=== PATIENT | female | born 1970 | race Caucasian/White ===

== ENCOUNTER 2020-01-21 12:32 | Emergency (ER) | payer OTHER, SELFPAY ==
--- NOTE | ~2020-01-21 | XR_ITS ---
XR ankle RT min 3V DATE: 01/21/2020 13:03 INDICATION: Right lateral ankle pain. No injury. TECHNIQUE: 4 views COMPARISON: None FINDINGS: There is moderate lateral soft tissue swelling. No fracture or dislocation of the ankle or disruption of the ankle mortise. Prominent plantar calcaneal enthesopathy. IMPRESSION: Plantar calcaneal enthesopathy Moderate lateral soft tissue swelling Reviewed, dictated and finalized at location A.
[2020-01-21 12:41] VITALS: BP 100/83; PULSE 94; RESP 16; TEMP 37.2; O2SAT 100
--- NOTE | 2020-01-21 12:49 | ED.LOWEXIN ---
HPI - Extremity Injury (Lower) General Chief Complaint: Extremity Injury, Lower Stated Complaint: extremity injury, lower Time Seen by Provider: 01/21/20 12:50 Source: patient Mode of arrival: ambulatory Limitations: no limitations History of Present Illness HPI Narrative: Julia Zavaleta is a 49 yo female with a PMH of anxiety, ADD, hypothyroid, migraine, who comes to express care with c/o swelling and mild swelling og lateral lower ; does not recall any trauma; does have difficulty turning to right without pain; walking on side of foot Related Data Home Medications Medication Instructions Recorded Confirmed omeprazole 20 mg capsule,delayed 20 mg PO DAILY PRN 07/27/19 01/21/20 release sumatriptan succinate 100 mg tablet 100 mg PO ONCE 07/27/19 01/21/20 Allergies Allergy/AdvReac Type Severity Reaction Status Date / Time egg Allergy Unknown Unknown Verified 12/03/19 12:59 iodine Allergy Unknown Unknown Verified 12/03/19 12:59 shellfish derived Allergy Unknown Unknown Verified 12/03/19 12:59 Oat Allergy Unknown Unknown Uncoded 12/03/19 12:59 shellfish, citrus, oats Allergy Unknown Unknown Uncoded 12/03/19 12:59 Shrimp Allergy Unknown Unknown Uncoded 12/03/19 12:59 Review of Systems Review of Systems: Narrative: CONSTITUTIONAL: Denies fever, chills, sweats. EYES: Denies visual changes, redness, discharge. ENT: Denies rhinorrhea, congestion, sore throat, otalgia. CARDIOVASCULAR: Denies chest pain, palpitations, edema. RESPIRATORY: Denies dyspnea, wheezing, cough GASTROINTESTINAL: Denies abdominal pain, nausea, vomiting, diarrhea. GENITOURINARY: Denies dysuria, hematuria, abnormal discharge SKIN: Denies rash or itching. NEUROLOGIC: Denies numbness, or focal weakness. PSYCHIATRIC: Denies anxiety or depression. Right lower leg swelling on lateral side with pain PMFSH Past Medical History Medical History ADHD Asthma Headache Hyperglycemia Obesity Thyroid disease Family History Family History Mother Hypertension Family history of thyroid disease Family history of Alzheimer's disease Grandparent Family history of malignant neoplasm of breast Family history of arthritis Family history of Alzheimer's disease Family history of malignant neoplasm of male breast Sibling Family history of obesity Family history of migraine headaches Family history of attention deficit hyperactivity disorder (ADHD) Social History Social History Smoking status: Never smoker Alcohol intake: current Gender identity (if verbalized by the patient): Female Comments At time of signature, I agree with nursing past medical, surgical, social and family history. There is no relevant family history pertinent to the presenting complaint. Exam Narrative: Exam Narrative: GENERAL: This is a well-nourished, well-developed patient, in mild distress. HEAD: normocephalic, atraumatic. EYES:Sclera clear/white. Vision is grossly intact. EARS: External ears normal, . Hearing grossly intact. NOSE: External nose normal without nasal discharge, no rhinorrhea. THROAT: Mucous membranes moist, NECK: Neck supple, CARDIOVASCULAR: Regular rate and rhythm without murmurs, gallops, or rubs. RESPIRATORY: Clear to auscultation. Breath sounds equal bilaterally. No wheezes, rales, or rhonchi. GASTROINTESTINAL: Abdomen soft, SKIN: warm, intact with no suspicious lesions or rash, good texture and turgor. NEURO: awake, alert, and oriented to person, place and time. There were no obvious focal neurologic abnormalities. Steady gait EXTREMITIES: Normal range of motion. Right lower extremity tenderness on the lateral side is able to point and flex foot with minimal discomfort but when tries to rotate ankle externally there is pain at the base of the malleolus and across the Achilles tendon, 2+
== END 2020-01-21 13:33 | disposition home or self-care (01) ==
PROVIDERS: Emergency Provider Nurse Practitioner; PCP Family Medicine
DX: S93.401A Sprain of unspecified ligament of right ankle, initial encounter (principal); S96.911A Strain of unspecified muscle and tendon at ankle and foot level, right foot, initial encounter; X58.XXXA Exposure to other specified factors, initial encounter; F90.9 Attention-deficit hyperactivity disorder, unspecified type; J45.909 Unspecified asthma, uncomplicated; E66.9 Obesity, unspecified; Z68.36 Body mass index [BMI] 36.0-36.9, adult; E03.9 Hypothyroidism, unspecified; F41.9 Anxiety disorder, unspecified
CPT/HCPCS: 73610; 99213; G0463

== ENCOUNTER 2020-01-24 10:23 | Outpatient (CLI) | payer OTHER, SELFPAY ==
--- NOTE | ~2020-01-24 | US_ITS ---
EXAMINATION: US venous doppler [facility] DATE: 01/24/2020 12:07 INDICATION: Right lower limb swelling TECHNIQUE: Grayscale ultrasound images without and with compression and Doppler ultrasound images of the bilateral lower extremity veins were obtained. COMPARISON: None. FINDINGS: The visualized portions of right common femoral vein, profunda (deep) femoral vein, femoral vein, pop liteal vein, posterior tibial veins, peroneal veins, gastrocnemius vein and greater saphenous vein ou tflow are patent. The visualized portions of left common femoral vein, profunda femoral vein, femoral vein, popliteal v ein, posterior tibial veins, peroneal veins, gastrocnemius vein and greater saphenous vein outflow ar e patent. IMPRESSION: 1. No deep venous thrombosis in either lower limb. Reviewed, dictated and finalized at location A.
== END 2020-01-24 10:24 | disposition home or self-care (01) ==
PROVIDERS: PCP Family Medicine; Visit Provider Nurse Practitioner Family
DX: M79.604 Pain in right leg (principal)
CPT/HCPCS: 93970

== ENCOUNTER 2020-02-11 07:31 | Outpatient (CLI) | payer OTHER, SELFPAY ==
--- NOTE | ~2020-02-11 | MR_ITS ---
EXAMINATION: MR ankle RT wo con DATE: 02/11/2020 09:20 INDICATION: Right ankle pain TECHNIQUE: Magnetic resonance imaging (MRI) of the right ankle was performed without intravenous cont rast. Sequences included sagittal, coronal, and axial proton-density weighted fast spin echo without and with fat saturation. COMPARISON: None. FINDINGS: Medial ankle ligaments: Deep and superficial deltoid ligaments as well as the spring ligament are normal. Lateral ankle ligaments: The anterior and posterior inferior tibiofibular ligaments are normal. Complete tear of the anterior talofibular ligament which is of indeterminate chronicity. The calcaneofibular and posterior talofibu lar ligaments are normal. Tendons: Achilles tendon is normal. The peroneus longus and brevis tendons are normal. The tibialis anterior a nd extensor hallucis longus and extensor digitorum longus tendons are normal. The tibialis posterior, flexor digitorum longus and flexor hallucis longus tendons are normal. Plantar fascia: Moderate-sized plantar calcaneal spur at the calcaneal origin of the otherwise normal plantar aponeur osis. Bones/other: There is periosteal reaction at the distal metadiaphyseal region of the left fibula with surrounding soft tissue edema as well as marrow edema. There is a subtle low signal intensity fracture line exten ding across the medullary space. Otherwise normal marrow signal. No pathologic marrow replacing proce ss. Joint spaces are relatively preserved. Fluid: No joint effusions or tenosynovitis. Likely reactive soft tissue edema surrounding the fibular fractu re. IMPRESSION: 1. Subacute nondisplaced transverse stress fracture of the distal metadiaphyseal region of the left f ibula 2. Age indeterminate complete tear of the anterior talofibular ligament. Reviewed, dictated and finalized at location A. IMPRESSION: 1. Subacute nondisplaced transverse stress fracture of the distal metadiaphysea l region of the left fibula 2. Age indeterminate complete tear of the anterior talofibular ligament.
== END 2020-02-11 07:32 | disposition home or self-care (01) ==
PROVIDERS: PCP Family Medicine; Visit Provider Physician Assistant Medical
DX: G89.29 Other chronic pain (principal); M25.571 Pain in right ankle and joints of right foot; S82.424A Nondisplaced transverse fracture of shaft of right fibula, initial encounter for closed fracture; X58.XXXA Exposure to other specified factors, initial encounter
CPT/HCPCS: 73721

== ENCOUNTER → 2020-05-16 13:42 | Outpatient (CLI) | payer OTHER, SELFPAY ==
--- NOTE | ~2020-05-16 | MM_ITS ---
EXAMINATION: MM screening debbie BI w shanell HISTORY: Screening mammogram TECHNIQUE: Craniocaudal and mediolateral oblique 3-D tomosynthesis images were obtained and synthetic 2-D images were generated. CAD analysis was submitted and interpreted. COMPARISON: 09/04/2018, 08/28/2017, 07/28/2016 bilateral digital screening mammogram examinations BREAST PARENCHYMAL COMPOSITION: There are scattered areas of fibroglandular density. FINDINGS: There is no evidence of suspicious mass, calcification, or architectural distortion to sugg est malignancy in either breast. There has been no suspicious interval change. IMPRESSION: 1. No mammographic evidence of malignancy. 2. Recommend routine screening mammography in one year. BI-RADS Category 1: Negative Reviewed, dictated and finalized at location B. ME PLATER
== END ==
PROVIDERS: Visit Provider Nurse Practitioner
DX: Z12.31 Encounter for screening mammogram for malignant neoplasm of breast (principal); R92.8 Other abnormal and inconclusive findings on diagnostic imaging of breast
CPT/HCPCS: 77063; 77067

== ENCOUNTER → 2020-06-07 08:41 | Outpatient (CLI) | payer OTHER, SELFPAY ==
--- NOTE | ~2020-06-07 | MMUS_ITS ---
EXAMINATION: MM diagnostic mammo unilat RT, US breast RT limited HISTORY: Right breast mass TECHNIQUE: Additional 3-D tomosynthesis images of the right breast were performed and synthetic 2-D i mages were generated. CAD analysis was submitted and interpreted. High resolution Limited right breas t ultrasound was performed. COMPARISON: 05/16/2020 BREAST PARENCHYMAL COMPOSITION: Breast composed of scattered areas of fibroglandular density. FINDINGS: MAMMOGRAPHIC FINDINGS: Overlying the pectoralis muscle there are 2 small circumscribed masses with central lucency measuring 6 mm or less, consistent with lymph nodes. No suspicious masses, calcifications or architectural dis tortion to suggest malignancy. ULTRASOUND: In the left axilla there are 2 lymph nodes, largest measuring 2 cm maximum dimension with normal fatt y hilum. In the axillary tail there is an oval hypoechoic mass measuring 6 mm with circumscribed shira ins, parallel orientation, no significant posterior features. IMPRESSION: 1. Probable benign 6 mm mass of the left axillary tail. 2. Recommend 6 month follow-up targeted left breast ultrasound and diagnostic mammogram BI-RADS category 3, probably benign findings. Reviewed, dictated and finalized at location A. 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 Probable benign 6 mm mass of the left axillary tail. 2. Recommend 6 month follow-up targeted left breast ultrasound and diagnostic m ammogram BI-RADS category 3, probably benign findings.
== END ==
PROVIDERS: Visit Provider Obstetrics & Gynecology Gynecology
DX: N63.32 Unspecified lump in axillary tail of the left breast (principal)
CPT/HCPCS: 76642; 77065

== ENCOUNTER → 2020-12-05 10:02 | Outpatient (CLI) | payer OTHER, SELFPAY ==
--- NOTE | ~2020-12-05 | MMUS_ITS ---
EXAMINATION: MM diagnostic debbie RT w shanell, US breast RT limited HISTORY: Six-month follow-up of probable benign 6 mm mass of right axillary tail TECHNIQUE: ML, MLO and cc full field and spot 3-D tomosynthesis images of were performed and syntheti c 2-D images were generated. CAD analysis was submitted and interpreted. High resolution upper outer quadrant right breast ultrasound was performed. COMPARISON: 06/07/2020 diagnostic right mammogram and limited right breast ultrasound Serial mammographic images from 05/16/2020 back to 01/18/2011 FINDINGS: MAMMOGRAPHIC FINDINGS: There are 2 circumscribed circular approximately 4.9 mm densities in the posterior right axillary kerri l. No suspicious mass or architectural distortion is detected elsewhere. There is minimal partial visual ization of one of these opacities on MLO projection of several prior mammograms including 2010, 2013 and 2017. The mammographic appearance suggests benign process. Targeted ultrasound was performed. ULTRASOUND: 11:00 axillary tail area: There are 3 circumscribed hypoechoic solid lesions identified, measuring 5. 4 x 5 x 6.3 mm, 5.4 x 3.6 x 4.6 mm and 7.2 x 7 x 8.5 mm. The larger lesion is irregular in outline, w ith some lobulations and angularity. Ultrasound-guided biopsy is recommended. IMPRESSION: 1. 3 axillary tail masses at 11:00; the larger lesion measuring up to 8.5 mm has some lobular and ang ular margins. 2. Ultrasound-guided biopsy of 8.5 mm irregular 11:00 right axillary tail mass is recommended. BI-RADS category 4, suspicious findings. Dr. Leblanc telephoned the ultrasound report and ultrasound-guided biopsy recommendation to VENKAT Griffin on 12/05/2020 at 1108 hours. Reviewed, dictated and finalized at location A. IMPRESSION: 1. 3 axillary tail masses at 11:00; the larger lesion measuring up to 8.5 mm tejeda s some lobular and angular margins. 2. Ultrasound-guided biopsy of 8.5 mm irregular 11:00 right axillary tail mass is recommended. BI-RADS category 4, suspicious findings. Dr. Leblanc telephoned the ultrasound report and ultrasound-guided biopsy recommen dation to VENKAT Griffin on 12/05/2020 at 1108 hours.
== END ==
PROVIDERS: Visit Provider Obstetrics & Gynecology Gynecology
DX: N63.11 Unspecified lump in the right breast, upper outer quadrant (principal)
CPT/HCPCS: 76642; 77061; 77065; G0279

== ENCOUNTER 2020-12-19 10:36 | Outpatient (CLI) | payer OTHER, SELFPAY ==
--- NOTE | ~2020-12-19 | US_ITS ---
Consultation US 12/19/2020 11:11 Indication: Mass identified in the right axilla on prior examination. Biopsy requested. Procedure: High-resolution ultrasound of the right axilla. I was personally present during ultrasound examination. Comparison: Ultrasound dated 12/05/2020. Findings: At 11:00 11 cm from the nipple, there are 2 adjacent hypoechoic masses with echogenic fatty hilum, both compatible with benign axillary lymph nodes, largest measuring 10 mm. No suspicious mass es to suggest malignancy. Impression: 1: Benign-appearing right axillary lymph nodes with normal fatty hilum. No sonographic evidence for m alignancy. Biopsy canceled. BI-RADS CATEGORY 3-PROBABLY BENIGN FINDING RECOMMENDATION: Six-month follow-up diagnostic right mammogram and right axillary ultrasound recommen ded. Reviewed, dictated and finalized at location A. Impression: 1: Benign-appearing right axillary lymph nodes with normal fatty hilum. No sono graphic evidence for malignancy. Biopsy canceled. BI-RADS CATEGORY 3-PROBABLY BENIGN FINDING RECOMMENDATION: Six-month follow-up diagnostic right mammogram and right axilla ry ultrasound recommended.
== END 2020-12-19 10:37 | disposition home or self-care (01) ==
PROVIDERS: PCP Family Medicine; Visit Provider Surgery
DX: R92.8 Other abnormal and inconclusive findings on diagnostic imaging of breast (principal)
CPT/HCPCS: 99199

== ENCOUNTER → 2021-01-29 11:27 | Outpatient (CLI) | payer OTHER, SELFPAY ==
--- NOTE | ~2021-01-29 | US_ITS ---
EXAMINATION: US pelvic complete DATE: 01/29/2021 11:46 INDICATION: Abnormal uterine bleeding Comparison:Ultrasound dated 02/12/2016 TECHNIQUE: Multiple transabdominal sonographic images of the pelvis performed. FINDINGS: The uterus measures 9.4 x 5.2 x 6.2 cm. There is a 3.9 cm hypoechoic mass at the fundus of the uterus, compatible with fibroid. The endometrial complex measures 6 mm. The right ovary measures 2.5 x 2 x 2.1 cm and the left ovary measures 3.4 x 1.6 x 1.7 cm. There are small follicles in each ovary. Normal doppler signal in both ovaries. There is no free fluid in the pelvis. There are no abnormal masses seen on either side. IMPRESSION: 1. Uterine fibroid measuring 3.9 cm maximum dimension. Reviewed, dictated and finalized at location A.
== END ==
PROVIDERS: Visit Provider Nurse Practitioner
DX: N93.8 Other specified abnormal uterine and vaginal bleeding (principal); D25.9 Leiomyoma of uterus, unspecified
CPT/HCPCS: 76856

== ENCOUNTER → 2021-03-21 10:34 | Outpatient (CLI) | payer OTHER, SELFPAY ==
--- NOTE | ~2021-03-21 | XR_ITS ---
XR knee RT 3V 03/21/2021 11:00 Indication: Right knee pain Procedure: 3 views right knee Comparison: No prior studies for comparison. Findings: There is mild osteoarthritis of the patellofemoral compartment. Small joint effusion. No fr acture or traumatic malalignment. No foreign bodies. Impression: 1: Mild patellofemoral compartment osteoarthritis. 2: Small joint effusion. Reviewed, dictated and finalized at location A. NIZATIONAL RESEARCH CONSULTANT Impression: 1: Mild patellofemoral compartment osteoarthritis. 2: Small joint effusion.
== END ==
PROVIDERS: PCP Family Medicine; Visit Provider Physician Assistant Medical
DX: M17.11 Unilateral primary osteoarthritis, right knee (principal); M25.461 Effusion, right knee
CPT/HCPCS: 73562

== ENCOUNTER → 2021-08-22 09:12 | Outpatient (CLI) | payer OTHER, SELFPAY ==
--- NOTE | ~2021-08-22 | MMUS_ITS ---
EXAMINATION: MM diagnostic debbie BI w shanell, US breast RT limited HISTORY: Six-month follow-up of right breast findings TECHNIQUE: Additional 3-D tomosynthesis images of the right breast were performed and synthetic 2-D i mages were generated. CAD analysis was submitted and interpreted. High resolution right upper outer q uadrant breast ultrasound was performed. COMPARISON: 12/05/2020 diagnostic right mammogram and limited right breast ultrasound examination BREAST PARENCHYMAL COMPOSITION: There are scattered areas of fibroglandular density. FINDINGS: MAMMOGRAPHIC FINDINGS: A 5 mm irregular mass is noted in the upper outer quadrant of the right breast anteriorly. Upper oute r quadrant breast ultrasound examination was performed. Otherwise no suspicious mass, architectural distortion, malignant calcification, skin thickening or r etraction or significant new or developing density of either breast is noted. ULTRASOUND: 10:00 1 cm from nipple: There is an irregular parallel circumscribed hypoechoic 4 x 7 mm mass. Ultras ound-guided biopsy is recommended. IMPRESSION: Ultrasound-guided biopsy of irregular solid 4 x 7 mm mass at right breast 10:00 1 cm from nipple is r ecommended BI-RADS category 4, suspicious findings. Dr. Leblanc telephoned the report and ultrasound-guided biopsy recommendation on 09/08/2021 at 1047 hours to Frank Mejia Reviewed, dictated and finalized at location A. IMPRESSION: Ultrasound-guided biopsy of irregular solid 4 x 7 mm mass at right breast 10:00 1 cm from nipple is recommended BI-RADS category 4, suspicious findings. Dr. Leblanc telephoned the report and ultrasound-guided biopsy recommendation on at 1047 hours to Frank Mejia
== END ==
PROVIDERS: PCP Obstetrics & Gynecology Gynecology; Visit Provider Surgery
DX: R92.8 Other abnormal and inconclusive findings on diagnostic imaging of breast (principal)
CPT/HCPCS: 76642; 77062; 77066; G0279

== ENCOUNTER 2021-08-28 13:07 | Outpatient (CLI) | payer OTHER, SELFPAY ==
--- NOTE | ~2021-08-28 | MMUS_ITS ---
EXAMINATION: US GUIDED NEEDLE BIOPSY DATE: 08/28/2021 14:30 CDT INDICATION: Irregular hypoechoic 4 x 7 mm mass of right breast at 10:00 1 cm from nipple TECHNIQUE AND FINDINGS: The risks and potential benefits of the procedure were discussed with the patient, and written inform ed consent was obtained. Timeout procedure was performed. After sterile preparation of the right sada st, 1% lidocaine was utilized for local anesthesia. A 14G spring-loaded biopsy gun needle was advanced to the edge of the region of interest from a super omedial approach utilizing sonographic guidance. A total of 4 tissue core samples were obtained thro ugh the lesion. An Inrad tissue marker clip was then placed at the biopsy site. Hemostasis was achie sae. A sterile bandage was applied. The patient tolerated procedure well and there was no evidence of immediate complication. The patien t was given verbal instructions prior to departing from the department. A two view mammogram was perf ormed to document tissue marker clip placement. The tissue samples were submitted to surgical patholo gy for histologic analysis. IMPRESSION: 1. Successful ultrasound guided biopsy of right 10:00 breast mass with biopsy marker placement. Plea se refer to pathology report for histologic analysis. Reviewed, dictated and finalized at Location A. Reviewed, dictated and finalized at location A. IMPRESSION: 1. Successful ultrasound guided biopsy of right 10:00 breast mass with biopsy marker placement. Please refer to pathology report for histologic analysis.
== END 2021-08-28 13:08 | disposition home or self-care (01) ==
LOC: ANHIMG 13:14
PROVIDERS: PCP Family Medicine; Visit Provider Surgery
DX: N60.31 Fibrosclerosis of right breast (principal); N60.41 Mammary duct ectasia of right breast; N60.21 Fibroadenosis of right breast; N60.81 Other benign mammary dysplasias of right breast
CPT/HCPCS: 19083; 88305; A4648

== ENCOUNTER 2022-03-06 11:25 | Outpatient (CLI) | payer OTHER, SELFPAY ==
--- NOTE | ~2022-03-06 | MM_ITS ---
EXAMINATION: MM diagnostic debbie BI w shanell HISTORY: Six-month follow-up post benign right breast biopsy TECHNIQUE: Craniocaudal, mediolateral, and mediolateral oblique 3-D tomosynthesis images of the breas ts were performed and synthetic 2-D images were generated. CAD analysis was submitted and interpreted . COMPARISON: 08/22/2021, 12/05/2020, 06/07/2020, 05/16/2020 FINDINGS: No suspicious mass, calcification, or architectural distortion are identified in either loki ast to suggest malignancy. There has been no suspicious interval change. Interval biopsy change is no leah in the upper outer quadrant of the right breast. IMPRESSION: 1. No mammographic evidence of malignancy. 2. Recommend routine screening mammography in one year. BI-RADS Category 2: Benign finding(s). Reviewed, dictated and finalized at location A.
== END 2022-03-06 11:26 | disposition home or self-care (01) ==
PROVIDERS: PCP Family Medicine; Visit Provider Surgery
DX: R92.8 Other abnormal and inconclusive findings on diagnostic imaging of breast (principal)
CPT/HCPCS: 77062; 77066; G0279

== ENCOUNTER 2023-09-08 15:06 | Outpatient (CLI) | payer OTHER, SELFPAY ==
--- NOTE | ~2023-09-08 | MR_ITS ---
MRI of the right knee Clinical history: Pain Technique: Coronal proton density and proton density-weighted images, sagittal proton-density and T2 fat-sat images, and axial proton-density fat-saturated images were acquired. Findings: Anterior and posterior cruciate ligaments are intact. Medial collateral ligament and the la teral collateral ligament complex are intact. Popliteus tendon is intact. There is probable complex tear of the anterior horn of the lateral meniscus. No medial meniscal tear evident. Articular cartilage in the patellofemoral compartment is well preserved. There is diffuse moderate to high-grade chondromalacia of the medial and lateral compartments, lateral worse than medial. Minimal tricompartmental osteophytes are present. Extensor mechanism is intact. Large joint effusion present. No Mckenna's cyst. 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 Mild de generative change of the patellofemoral compartment. Complex tearing of the anterior horn of the lateral meniscus. Large joint effusion. Reviewed, dictated and finalized at location . 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 Mild degenerative change of the patellofemoral compartment. Complex tearing of the anterior horn of the lateral meniscus. Large joint effusion.
== END 2023-09-08 15:07 ==
PROVIDERS: PCP Physician Assistant; Visit Provider Physician Assistant
DX: M25.461 Effusion, right knee (principal)
CPT/HCPCS: 73721

== ENCOUNTER 2024-07-20 13:46 | Outpatient (CLI) | payer OTHER, SELFPAY ==
--- NOTE | ~2024-07-20 | MM_ITS ---
EXAMINATION: MM screening debbie BI w shanell HISTORY: Screening mammogram TECHNIQUE: Craniocaudal and mediolateral oblique 3-D tomosynthesis images were obtained and synthetic 2-D images were generated. CAD analysis was submitted and interpreted. COMPARISON: 03/06/2022, 08/22/2021, 12/05/2020, 05/16/2020 BREAST PARENCHYMAL COMPOSITION:Not Dense. The breasts are almost entirely fatty FINDINGS: No suspicious mass, calcification, or architectural distortion are identified in either loki ast to suggest malignancy. There has been no suspicious interval change. IMPRESSION: No mammographic evidence of malignancy. Recommend routine screening mammography in one year. BI-RADS Category 1: Negative Reviewed, dictated and finalized at location .
--- NOTE | ~2024-07-20 | DEXA_ITS ---
Bone Density Report Name: JANNY STEVENSON Age: 53 Sex: Female Ethnicity: White Date of : 1970 Indication: screening for osteoporosis; asthma or emphysema; Referring Provider: Jovanna Pack Study: Bone densitometry was performed. Exam Date: July 20, 2024 Accession number: [id number] Bone Density: Region BMD T-score Z-score Classification AP Spine(L1-L4) 0.959 -0.8 0.0 Normal Femoral Neck (Left) 0.743 -1.0 -0.1 Normal Total Hip (Left) 1.015 0.6 1.1 Normal Femoral Neck (Right) 0.745 -0.9 -0.1 Normal Total Hip (Right) 1.019 0.6 1.2 Normal Femoral Neck Mean 0.744 -0.9 -0.1 Normal Total Hip Mean 1.017 0.6 1.1 Normal World Health Organization criteria for BMD impression classify patients as: Normal (T-score at or above -1.0), Osteopenia (T-score between -1.0 and -2.5), or Osteoporosis (T-score at or below -2.5). 10-year Fracture Risk: FRAX not reported because: Premenopausal woman All T-scores for Spine Total, Hip Total, Femoral Neck at or above -1.0 Clinical Information Provided by Patient: Has used the following medications: HRT (i.e. estrogen/hormone therapy), Vitamin D, Calcium Has the following medical conditions: Asthma or Emphysema No regular weight bearing exercise Drinks caffeinated beverages Onset of menses at age 14 Premenopausal Number of children 1 Impression: The patient's bone mass is within expected range for age, gender and ethnicity. Discussion: BONE DENSITY IS WITHIN EXPECTED LIMITS FOR AGE, SEX AND RACE. Bone density is within expected limits for age, sex and race at all sites measured. The patient should follow a healthful lifestyle (good nutrition with adequate calcium and vitamin D, and appropriate weight-bearing exercise). Follow-Up: Consider repeating this study in 5 years or sooner if there is some new clinical indication. Reported by: KENDALL on 07/20/2024 2:18:00 PM. Reviewed, dictated and finalized at location A.
--- OUTSIDE RECORDS SUMMARY | 2024-07-20 15:29 | XMS_ITS | Referral Summary ---
Author Organization [facility] Address [address] [place] [address] Care Team Providers Care Sandwich Maker Name Role Phone Rene Santoyo MD Primary Care Provider [phone] Source Comments [facility],non-[facility]iliates and Associated Physician Practices is amultiple site organization consisting of ambulatory clinics and hospital sitesin [place], [place], [place] and [place]. This disclosure is being madepursuant to the Care Everywhere program and may not contain all information available regarding this patient. Last updated 18.[facility] Allergies Active Allergy Reactions Criticality Noted Date Comments Albumin Diarrhea 02/17/2020 Shellfish Swelling 04/13/2010 Medications * Be aware that medications may not be up to date on this document. Alwaysverify current medications with the patient. Medication Sig Dispensed Refills Start Date End Date Status levothyroxine (SYNTHROID) 150 MCG tablet Take 112 mcg by mouth daily before breakfast Active liothyronine (CYTOMEL) 50 MCG tablet Take 5 mcg by mouth once daily Active sumatriptan (IMITREX) 50 MG tablet Take 50 mg by mouth once as needed for Migraine. Active albuterol HFA (PROVENTIL;VENTOLIN;P ROAIR) 108 (90 BASE) MCG/ACT inhaler Inhale 2 Puffs by mouth every 6 hours as needed Active omeprazole (PRILOSEC) 20 MG capsule Take 20 mg by mouth daily before breakfast. Active busPIRone (BUSPAR) 15 MG tablet 02/02/2020 Active dexmethylphenidate ER 24hr (FOCALIN XR) 20 MG capsule TK 1 C PO D 02/02/2020 Active vitamin D, ergocalciferol, (DRISDOL) 1.25 MG (69123 UT) capsule 01/28/2020 Active Active Problems Problem Noted Date Diagnosed Date Dysphagia 02/17/2020 Hx of adenomatous colonic polyps 02/17/2020 Social History Tobacco Use Types Packs/Day Years Used Date Smoking Tobacco: Never Smokeless Tobacco: Never Alcohol Use Standard Drinks/Week Comments Yes 2 (1 standard drink = 0.6 oz pur e alcohol) Sex and Gender Information Value Date Recorded Sex Assigned at Not on file Gender Identity Not on file Sexual Orientation Not on file Last Filed Vital Signs Vital Sign Reading Time Taken Comments Blood Pressure 144/91 09/15/2020 10:36 AM CDT Pulse 79 09/15/2020 10:36 AM CDT Temperature 36.7 C (98 F) 09/15/2020 10:12 AM CDT Respiratory Rate 10 09/15/2020 10:36 AM CDT Oxygen Saturation 100% 09/15/2020 10:36 AM CDT Inhaled Oxygen Concentration - - Weight 99.8 kg (220 lb) 09/15/2020 8:42 AM CDT Height 165.1 cm (5' 5 ) 09/15/2020 8:42 AM CDT Body Mass Index 36.61 09/15/2020 8:42 AM CDT Functional Status Functional Status Response Date of Assess ment Is person deaf or have serious hearing difficult y? No 10/16/2015 Is person blind or have serious difficulty seein g? No 10/16/2015 Does person have serious dif ficulty walking/climbing stairs? No 10/16/2015 Does person have difficulty dressing/bathing? No 10/16/2015 Does person have difficulty doing errands alone? No 10/16/2015 Cognitive Status Response Date of Assessm ent Does person have difficulty concentrating/remembering/making decisions? No 10/16/2015 Plan of Treatment Not on file Procedures Procedure Name Priority Date/Time Associated Diagnosis Comments ENDOSCOPY, COLON, SCREENING Routine 09/15/2020 8:37 AM CDT from Last 3 Months or Most Recently Relevant to Health Maintenance Results * ENDOSCOPY, COLON, SCREENING (09/15/2020 8:37 AM CDT) Report Endoscopy POC _ Patient Name: Julia Zavaleta Procedure Date: 09/15/2020 8:37 AM Date of : 1970 Admit Type: Outpatient Age: 49 Gender: Female Attending MD: Ivan Quick MD _ Procedure: Colonoscopy Indications: Screening for colorectal malignant neoplasm, High risk colon cancer surveillance: Personal history of colonic polyps, Last colonoscopy 5 years ago Providers: Ivan Quick MD (Doctor) Referring MD: Rene Santoyo MD (Referring MD) Medicines: Monitored Anesthesia Care Complications: No immediate complications. _ Procedure: Pre-Anesthesia Assessment: - Prior to the procedure, a History and Physical was performed, and patient medications and allergies were reviewed. The patient is competent. The risks and benefits of the procedure and the sedation options and risks were discussed with the patient. All questions were answered and informed consent was obtained. Patient identification and proposed procedure were verified by the physician, the nurse and the cloth shader in the procedure room. Mental Status Examination: alert and oriented. Airway Examination: normal oropharyngeal airway and neck mobility. Respiratory Examination: clear to auscultation. CV Examination: normal. Prophylactic Antibiotics: The patient does not require prophylactic antibiotics. Prior Anticoagulants: The patient has taken no previous anticoagulant or antiplatelet agents. ASA Grade Assessment: II - A patient with mild systemic disease. After reviewing the risks and benefits, the patient was deemed in satisfactory condition to undergo the procedure. The anesthesia plan was to use monitored anesthesia care (MAC). Immediately prior to administration of medications, the patient was re-assessed for adequacy to receive sedatives. The heart rate, respiratory rate, oxygen saturations, blood pressure, adequacy of pulmonary ventilation, and response to care were monitored throughout the procedure. The physical status of the patient was re-assessed after the procedure. After I obtained informed consent, the scope was passed under direct vision. Throughout the procedure, the patient's blood pressure, pulse, and oxygen saturations were monitored continuously. The Colonoscope was introduced through the anus and advanced to the cecum, identified by appendiceal orifice and ileocecal valve. The colonoscopy was performed without difficulty. The patient tolerated the procedure well. The quality of the bowel preparation was excellent. The ileocecal valve, appendiceal orifice, and rectum were photographed. Findings: The digital rectal exam was normal. Pertinent negatives include no palpable rectal lesions. Multiple small and large-mouthed diverticula were found in the sigmoid colon and descending colon. The rectum, transverse colon, ascending colon, cecum, appendiceal orifice and ileocecal valve appeared normal. _ Impression: - Diverticulosis in the sigmoid colon and in the descending colon. - The rectum, transverse colon, ascending colon, cecum, appendiceal orifice and ileocecal valve are normal. - No specimens collected. Recommendation: - Repeat colonoscopy in 5 years for surveillance. - Return to primary care physician as previously scheduled. - Resume previous diet. - Continue present medications. - Patient has a contact number available for emergencies. The signs and symptoms of potential delayed complications were discussed with the patient. Return to normal activities tomorrow. Written discharge instructions were provided to the patient. Procedure Code(s): --- Professional --- 59610, Colonoscopy, flexible; diagnostic, including collection of specimen(s) by brushing or washing, when performed (separate procedure) --- Technical --- 83919, Colonoscopy, flexible; diagnostic, including collection of specimen(s) by brushing or washing, when performed (separate procedure) Diagnosis Code(s): --- Professional --- Z12.11, Encounter for screening for malignant neoplasm of colon Z86.010, Personal history of colonic polyps K57.30, Diverticulosis of large intestine without perforation or abscess without bleeding --- Technical --- Z12.11, Encounter for screening for malignant neoplasm of colon Z86.010, Personal history of colonic polyps K57.30, Diverticulosis of large intestine without perforation or abscess without bleeding CPT copyright 2019 [employer]. All rights reserved. The codes documented in this report are preliminary and upon staff assistant review may be revised to meet current compliance requirements. Dr. Ivan Quick MD Ivan Quick MD 09/15/2020 10:10:25 AM This report has been signed electronically. Number of Addenda: 0 Note Initiated On: 09/15/2020 8:37 AM [facility] 09/15/2020 8:37 AM CDT Ivan Quick MD GI PROCEDURE ORDERA [facility] [place] Organization Address City/State/[facility] Co de Phone Number [facility] [place] [address] from Last 3 Months or Most Recently Relevant to Health Maintenance Care Teams Sandwich Maker Relationship Specialty Start Date End Date Rene Santoyo MD [address] [place] [address] PCP - General Family Medicine 08/21/15
--- OUTSIDE RECORDS SUMMARY | 2024-07-20 15:29 | XMS_ITS | Encounter Summary ---
Author Organization [facility] Address [address] [place] [address] Care Team Providers Care Patch Washer Name Role Phone Rene Santoyo MD Primary Care Provider [phone] Donna Porter Unavailable [phone] Reason for Visit * Auth/Cert (Routine) Specialty Diagnoses / Procedures Referred By Contdominga t Referred To Contact Procedures AK ARTHRS KNE SURG W/MENISCECTOMY MED/LAT W/SHVG Referral ID Status Reason Start Date Expiration Date Visits Re quested Visits Authorized [id number] 1 1 Encounter Details Date Type Department Care Team (Late st Contact Info) Description 01/05/2024 Hospital Encounter [facility] Operating [facility] [address] [place] [address] Alfonso Do MD [address] [place] [address] DR REBECA Guo [facility] [address] [place] [address] Social History Tobacco Use Types Packs/Day Years Used Date Smoking Tobacco: Never Smokeless Tobacco: Never Alcohol Use Standard Drinks/Week Comments No 0 (1 standard drink = 0.6 oz pur e alcohol) AUDIT-C Answer Date Recorded Q1: How often do you have a drink containing alc ohol? Monthly or less 06/15/2024 Q2: How many drinks containi ng alcohol do you have on a typical day when you are drinking? 1 or 2 06/15/2024 Q3: How often do you have si x or more drinks on one occasion? Monthly 06/15/2024 Personal Safety Answer Date Recorded Have you ever been in or are you currently in a harmful physical or emotional relationship or is someone making you feel afraid or unsafe? 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 Monthly or less 06/15/2024 1:35 PM Jeannette Mack MA Q2: How many drinks containing alcohol do you have on a typical day when you are drinking? 1 or 2 06/15/2024 1:35 PM Yanet Mack MA Q3: How often do you have six or more drinks on one occasion? Monthly 06/15/2024 1:35 PM Jeannette Mack MA documented as of this encounter H&P Notes * Donna Porter PA - 01/05/2024 7:50 AM CDT Images from the original note were not included. NEW PATIENT VISIT Subjective CHIEF COMPLAINT She had concerns including Pain of the Right Knee. HISTORY OF PRESENT ILLNESS Right knee pain for the past few years pain has recently gotten worse not sure what started the problem her pain is dull and moderate severe. Standing on hard surfaces makes it worse and long periodsmakes it worse nothing really makes it better her pain is activity related unpredictable she has had steroid injections in the past anti-inflammatories in the past she recently had MRI showing a compl ex lateral meniscus tear she is here for surgical consultation Bus Analyst completed by using M*Modal Fluency Direct speaking software, therefore, transcriptionvariances may occur. Pain Assessment Pain Assessment: 0-10 Pain Score: 4 Pain Location: Knee Pain Orientation: Right PAST MEDCIAL HISTORY She has a past medical history of ADHD (attention deficit hyperactivity disorder), Anemia, Asthma, Disorder of thyroid, GERD (gastroesophageal reflux disease), OTHER MEDICAL, and OTHER MEDICAL. PAST SURGICAL HISTORY She has a past surgical history that includes section; Hernia repair; Cholecystectomy; andBariatric Surgery. MEDICATIONS She has a current medication list which includes the following prescription(s): dexmethylphenidate,duloxetine dr, ergocalciferol, liothyronine, lisinopril, sertraline, sumatriptan, synthroid, and sertraline. ALLERGIES She is allergic to shellfish and egg. SOCIAL HISTORY She reports that she has never smoked. She has never used smokeless tobacco. No alcohol history on file. FAMILY HISTORY Her family history includes Hypothyroidism in an other family member. REVIEW OF SYSTEMS Review of Systems Constitutional: Negative for activity change, appetite change, chills, fever and unexpected weight change. HENT: Negative for congestion, dental problem, ear pain, hearing loss, nosebleeds, tinnitus and voice change. Eyes: Negative for pain and visual disturbance. Respiratory: Negative for apnea, cough, chest tightness and shortness of breath. Cardiovascular: Negative for chest pain, palpitations and leg swelling. Gastrointestinal: Negative for blood in stool, constipation, diarrhea, nausea and vomiting. Endocrine: Negative for cold intolerance and heat intolerance. Genitourinary: Negative for difficulty urinating, hematuria and urgency. Skin: Negative for color change, rash and wound. Allergic/Immunologic: Negative for environmental allergies. Neurological: Negative for dizziness, syncope, numbness and headaches. Hematological: Negative for adenopathy. Does not bruise/bleed easily. Psychiatric/Behavioral: Negative for confusion. The patient is not nervous/anxious and is not hyperactive. Objective PHYSICAL EXAM BP 122/85 Pulse 83 Ht 165.1 cm (5' 5 ) Wt 108.9 kg (240 lb) BMI 39.94 kg/m?? Right knee Inspection The patient has normal inspection of the right knee. Skin temperature: normal Alignment: neutral Gait: antalgic Palpation Tenderness: present. The tenderness is located in the patellar tendon and lateral joint line. Crepitus: negative Patella grind: negative Range of motion The patient has reduced range of motion of the right knee. The patient has pain with range of motion of the right knee. Active extension: 0 Active flexion: 96-100 Flexion contracture: no. Stability AP stability: stable ML stability: stable Strength Knee extension: 4/5 Knee flexion: 4/5 Neurovascular The patient has normal vascular on the right side of their body. The patient has normal sensation on the right side of their body. Special tests Onur: medial postive Onur: lateral negative Patellar apprehension: negative Left knee The patient has normal inspection, palpation, range of motion, strength, and stabiltiy of the left knee. Range of motion Active flexion: 121-125 Strength The patient has 5/5 strength throughout. REVIEW OF X-RAYS/STUDIES/LABS Assessment Assessment/Plan Julia was seen today for pain. Diagnoses and all orders for this visit: Primary osteoarthritis of right knee Right knee pain, unspecified chronicity - XR Knee Right 4 or More Views; Future Complex tear of lateral meniscus of right knee as current injury, initial encounter Procedures PLAN Risks and benefits of the arthroscopic knee surgery with menisectomy were discussed with the patient. These include but are not limited to bleeding infection damage to surrounding structures including ... DVT, PE, stroke, heart attack, and continued knee pain. Patient understands these risks and agreed to proceed with the surgery as described above. All questions and concerns were addressedwith the patient prior to surgical consent being established in the office today. The patient will follow up for surgery. Patient demonstrates atrophy and weakness of the lower extremity and would benefit from home E stim device. Recommend the patient to see a weight loss specialist recommend decreasing BMI below 30, recommend strength training 2-3 per week. Patient has been medically optimized by their PCP and may proceed with acceptable risk. EDOUARD Jimenez Cosigned by Alfonso Do MD at 01/05/2024 10:55 AM CDT documented in this encounter Nursing Notes * Shaila Hogan RN - 12/29/2023 2:56 PM CDT 12/29/23 1442 Sleep Apnea Questions Have you ever had a sleep study? Yes Have you ever been diagnosed with sleep apnea? Yes Do you use a machine to help you breathe at night? No STOP-Bang Questionnaire Do you snore loudly? 1 Do you often feel tired or fatigued after you sleep? 0 Has anyone ever observed you stop breathing in your sleep? 0 Do you have or are you being treated for high blood pressure? 1 Recent BMI (Calculated) 39.9 Is BMI greater than 35 kg/m2? 1=Yes Age older than 50 years old? 1=Yes Neck Circumference Greater Than (17 inches Male) or (16 inches Female) 0 Gender - Male 0=No STOP-Bang Total Score 4 Discharge instructions for sleep apnea placed in patients chart. documented in this encounter Miscellaneous Notes * Pre-Procedure Instructions - Shaila Hogan RN - 12/29/2023 2:51 PM CDT We are pleased that you and your doctor have chosen [facility] for your surgery. We hope that the following information will help make your visit a pleasant one. Surgery Date: 01/05/2024 Surgery Department will call you on Friday01-02-24 after 3 pm with your arrival time. Before your surgery: Notify your doctor of ANY change in your health such as a cold, sore throat, fever, any infection or a change in the problem for which you are having your surgery. Follow any instructions given to you by your doctor or surgeon. Check with your doctor if you need to STOP taking: Aspirin (ordered by your doctor) Plavix Coumadin One week before surgery STOP taking: All herbal supplements Aspirin (not ordered by your doctor) Aleve, Advil, Motrin, Ibuprofen, or other similar medications (Tylenol is okay). 24 hours before your surgery: No smoking or alcoholic drinks. Night before your surgery: Do not eat or drink anything after midnight. Follow surgeon's instructions for anti-bacterial shower night before and morning of surgery. Day of surgery: Do not swallow any water when you brush your teeth. ONLY take these pills with a tiny sip of water. Pre-Surgery Instructions: Medication Instructions buPROPion SR (WELLBUTRIN SR) 150 mg 12 hr tablet Take morning of surgery ergocalciferol (VITAMIN D) 50,000 unit capsule Stop taking 7 days prior to surgery liothyronine (CYTOMEL) 5 mcg tablet Take morning of surgery lisinopriL (PRINIVIL,ZESTRIL) 20 mg tablet Take morning of surgery sertraline (ZOLOFT) 100 mg tablet Take morning of surgery SUMAtriptan (IMITREX) 100 mg tablet Hold the morning of surgery Synthroid 112 mcg tablet Take morning of surgery Use no make-up, nail frisian, lotions, oils or powders on your skin. Wear comfortable clothes that will not be tight in the area of your surgery. Leave all valuables and jewelry (including all body piercing jewelry) at home. Please bring your a photo ID and insurance cards with you. Check in at the Registration Desk downstairs in the Ambulatory Surgery Department. You will come inthe main entrance and go down the guevara until you see the [employer] shop, there will be elevators to the right, take those down to LL1. You will exist the elevators to the right and go down thehall and you will pass Medical Imaging on the left and we will be the next department on the right,you will see the sign above that says Ambulatory Surgery Department check-in. After your Outpatient Surgery: You must have a responsible adult to drive you home, you will not be allowed to drive or take a cabhome. We recommend you have someone stay with you for 24 hours after your surgery. What to bring if you are spending the night with us: Bring toiletry items such as: robe, slippers, toothbrush, toothpaste, brush or comb. Bring contact lens, hearing aids, glass cases and denture container if you use any of these items. The hospital will provide you with a gown. Questions or concerns: If you have any questions or concerns regarding your procedure, contact your surgeon as soon as possible. If you have questions regarding your Pre-Admission Testing, please call us. We can be reached at the number posted at the top of the page. documented in this encounter Plan of Treatment Not on file documented as of this encounter Visit Diagnoses Not on filedocumented in this encounter Admitting Diagnoses Diagnosis Complex tear of lateral meniscus of right knee documented in this encounter Discontinued Medications Medication Sig Discontinue Reason Start Date End Da te dexmethylphenidate (FOCALIN) 10 mg tablet 1 tablet (10 mg total) Therapy completed 04/09/2021 12/29/[address] (CYMBALTA) 60 mg capsule Take 1 capsule (60 mg total) by mouth daily Therapy completed 02/01/2021 12/29/2023 sertraline (ZOLOFT) 100 mg tablet Therapy completed 06/09/2023 12/29/2023 sertraline (ZOLOFT) 50 mg tablet Therapy completed 10/04/2021 12/29/2023 documented as of this encounter Historical Medications * This list may reflect changes made after this encounter. sertraline (ZOLOFT) 100 mg tablet Take 2 tablets (200 mg total) by mouth daily buPROPion SR (WELLBUTRIN SR) 150 mg 12 hr tablet Take 2 tablets (300 mg total) by mouth daily 04/27/2024 added in this encounter Care Teams Patch Washer Relationship Specialty Start Date End Date Rene Santoyo MD PCP - General 11/24/12 Donna Porter PA [address] [place] [address] DR GALVAN [address] [place] [id number] Physician Manager [employer] [facility] 04/29/24 documented as of this encounter
--- OUTSIDE RECORDS SUMMARY | 2024-07-20 15:29 | XMS_ITS | Referral Summary ---
Author Organization [facility] Medical Office Building [address] Address [address] [place] [address] Care Team Providers Care Pediatric Associate Name Role Phone Rene Santoyo MD Primary Care Provider [phone] Donna Porter Unavailable [phone] Encounters Date Type Department Care Team Description 06/15/2024 1:45 PM BLOOD TYPER Ancillary Procedure [facility] Imaging at [address] [phone] 06/15/2024 1:30 PM BLOOD TYPER Office Visit [facility] Orthopedic and Sports Medicine [address] [place] [phone] Donna Porter PA Acute pain of left knee (Primary Dx); Other bilateral secondary osteoarthritis of knee; S/P lateral meniscectomy of right knee; Acute medial meniscus tear of left knee, initial encounter; Chronic pain of right knee 05/20/2024 2:00 PM BLOOD TYPER Office Visit [facility] Orthopedic and Sports Medicine [address] [place] [phone] Donna Porter PA Primary osteoarthritis of right knee (Primary Dx); S/P arthroscopic partial medial meniscectomy of right knee; S/P arthroscopic partial lateral meniscectomy of right knee 04/29/2024 7:45 AM BLOOD TYPER - 04/29/2024 8:45 AM BLOOD TYPER Surgery [facility] Operating Room [address] [place] [address] Alfonso Do MD Right knee arthroscopy, medial and lateral meniscectomy including any meniscal shavings, medial and lateral chondroplasty 04/29/2024 7:46 AM BLOOD TYPER Anesthesia Event [facility] Operating Room [address] [place] [address] Salma Villasenor Jr., MD McDowell, Juri Osmell, MD 04/29/2024 6:36 AM BLOOD TYPER - 04/29/2024 11:03 AM BLOOD TYPER Hospital Encounter [facility] Operating Room [address] [place] [address] Alfonso Do MD Complex tear of lateral meniscus of right knee as current injury, initial encounter (Primary Dx); Acute medial meniscus tear of right knee, initial encounter; Complex tear of lateral meniscus of right knee as current injury, initial encounter; Acute medial meniscus tear of right knee, initial encounter Discharge Disposition: Discharge to home or self care from Last 3 Months Allergies Active Allergy Reactions Criticality Noted Date Comments Egg Other (See comments) Low Pimples and diarrhea Shellfish Swelling Medium 04/13/2010 Medications ergocalciferol (VITAMIN D) 50,000 unit capsule Take 1 capsule (50,000 Units total) by mouth once a week 03/13/20 21 Active Synthroid 112 mcg tablet Take 1 tablet (112 mcg total) by mouth trouble locater before breakfast 03/01/20 21 Active liothyronine (CYTOMEL) 5 mcg tablet Take 1 tablet (5 mcg total) by mouth daily 03/15/20 21 Active SUMAtriptan (IMITREX) 100 mg tablet Take 1 tablet (100 mg total) by mouth once as needed 01/17/20 21 Active lisinopriL (PRINIVIL,ZESTRIL ) 20 mg tablet Take 1 tablet (20 mg total) by mouth daily 06/02/19 24 Active sertraline (ZOLOFT) 100 mg tablet Take 2 tablets (200 mg total) by mouth daily Active buPROPion (WELLBUTRIN) 100 mg tablet Take 1 tablet (100 mg total) by mouth 2 (two) times a day Active vit A/vit C/vit E/zinc/copper (ICAPS AREDS ORAL) Take by mouth daily Active multivit-min/iron /folic acid/K (BARIATRIC MULTIVITAMINS ORAL) Take by mouth daily Active senna-docusate (PERICOLACE) 8.6-50 mg 1-2 times daily as needed for constipation 60 tablet 1 04/29/20 24 Active ondansetron (ZOFRAN) 4 mg tablet Every 4-6 hours as needed 30 tablet 1 04/29/20 24 Active ascorbic acid (VITAMIN C) 500 mg tablet,chewable Take 1 tablet/chew tab (500 mg total) by mouth 2 (two) times a day 60 tablet/chew tab 04/29/20 24 Active cholecalciferol (Vitamin D3) 2000 unit tablet Take 1 tablet (2,000 Units total) by mouth daily 30 tablet 04/29/20 24 Active aspirin 81 mg chewable tablet Take 1 tablet (81 mg total) by mouth 2 (two) times a day for 14 days 28 tablet 04/29/20 24 Active HYDROcodone-aceta minophen (NORCO) 5-325 mg per tabletIndications :Pain Take 1 tablet by mouth every 6 (six) hours as needed for pain 20 tablet 04/29/20 24 Active ALPRAZolam (XANAX) 0.5 mg tablet TAKE 1 TABLET BY MOUTH EVERY DAY AT BEDTIME NEEDED FOR ANXIETY 06/02/19 25 Active estradioL (ESTRACE) 0.5 mg tablet Take 1 tablet (0.5 mg total) by mouth daily 05/31/19 25 Active Active Problems Problem Noted Date Diagnosed Date Acute medial meniscus tear of right knee 024 Complex tear of lateral meniscus of right knee 0 12/16/2023 Dysphagia 02/17/2020 Hypothyroidism 09/25/2013 Overview (08/16/2016): HYPOTHYROIDISM NOS Lymphocytic thyroiditis 09/25/2013 Overview (08/16/2016): CHR LYMPHOCYT THYROIDIT Thyroid activity decreased 12/30/2008 Bronchial asthma 12/30/2008 Social History Tobacco Use Types Packs/Day Years [...] on file Legal Sex Female 8:16 AM BLOOD TYPER Gender Identity Not on file Sexual Orientation Not on file Last Filed Vital Signs Vital Sign Reading Time Taken Comments Blood Pressure 125/70 06/15/2024 1:32 PM BLOOD TYPER Pulse 72 06/15/2024 1:32 PM BLOOD TYPER Temperature 36.4 C (97.6 F) 04/29/2024 9:40 AM BLOOD TYPER Respiratory Rate 18 06/15/2024 1:32 PM BLOOD TYPER Oxygen Saturation 96% 04/29/2024 10:10 AM BLOOD TYPER Inhaled Oxygen Concentration - - Weight 116.1 kg (256 lb) 06/15/2024 1:32 PM BLOOD TYPER Height 165.1 cm (5' 5 ) 06/15/2024 1:32 PM BLOOD TYPER Body Mass Index 42.6 06/15/2024 1:32 PM BLOOD TYPER Plan of Treatment Not on file Procedures Procedure Name Priority Date/Time Associated Diagnosis Comments XR KNEE LEFT 1 OR 2 VIEWS Schedule Routine, Read Routine (OP Routine) 06/15/2024 1:55 PM BLOOD TYPER Acute pain of left knee HI ARTHROCENTESIS ASPIR&/INJ MAJOR JT/BURSA W/O US Routine 06/15/2024 1:30 PM BLOOD TYPER Acute pain of left knee Other bilateral secondary osteoarthritis of knee Chronic pain of right knee HI AN ELECTIVE SUPRAGLOTTIC AIRWAY Routine 04/29/2024 7:57 AM BLOOD TYPER ARTHROSCOPY KNEE 04/29/2024 7:45 AM BLOOD TYPER Complex tear of lateral meniscus of right knee, unspecified whether old or current tear, initial encounter POCT HCG, URINE Routine 04/29/2024 7:02 AM BLOOD TYPER from Last 3 Months Results * XR Knee Left 1 or 2 Views (06/15/2024 1:55 PM BLOOD TYPER) Anatomical Region Laterality Modality Lower Extremities, Knee Left Digital Radiography Narrative 07/11/2024 10:45 AM BLOOD TYPER Lateral view of the left knee is reviewed, interpreted, and compared with previous imaging obtained in November of 2023. No acute fractures or destructive osseous lesions are seen. Mild joint effusion. Moderate tibial femoral joint space narrowing present. Donna NUNN IMG XR PROCEDURES Final Result * HI ARTHROCENTESIS ASPIR&/INJ MAJOR JT/BURSA W/O US (06/15/2024 1:30 PM BLOOD TYPER) Narrative Donna Porter PA - 06/15/2024 1:30 PM BLOOD TYPER Donna Porter PA 07/11/2024 10:51 AM Large Joint (Hip, Knee, Shoulder) Injection: bilateral knee Performed by: Donna Porter PA Authorized by: Donna Porter PA Large Joint Injection/Aspiration: Consent Given by: Patient Site marked: the procedure site was marked Timeout: prior to procedure the correct patient, procedure, and site was verified Verbal consent obtained: Yes Supporting Documentation: Indications: Pain Procedure Details: Location: Knee Site: Bilateral knee Prep: patient was prepped and draped in usual sterile fashion Needle Size: 22 G Approach: Anterolateral Ultrasound guided: No Fluroscopic guidance: No Medications Right Large Joint Injection: 80 mg methylPREDNISolone acetate 80 mg/mL; 3 mL lidocaine 20 mg/mL (2 %) Medications Left Large Joint Injection: 80 mg methylPREDNISolone acetate 80 mg/mL; 3 mL lidocaine 20 mg/mL (2 %) Patient tolerance: Patient tolerated the procedure well with no immediate complications Result [facility] Donna NUNN IN CLINIC/BEDSIDE ORDER TABATHA Final Result * HI AN ELECTIVE SUPRAGLOTTIC AIRWAY (04/29/2024 7:57 AM BLOOD TYPER) Narrative Deep Darnell CRNA - 04/29/2024 7:57 AM BLOOD TYPER Deep Darnell CRNA 04/29/2024 7:57 AM Airway Patient location: OR Urgency: elective Indications for airway management: anesthesia Difficult airway: no Staff: Placed by: SIZE MIXER: Deep Darnell CRNA Emergent airway documentation: Risks and benefits discussed: yes Consent obtained: yes Consent given by: patient Airway prep: Preoxygenated: yes Patient position: sniffing Mask difficulty assessment: 0 - not attempted Spontaneous ventilation during airway: absent Sedation level during airway: GA Final airway details: Final airway type: supraglottic airway Final supraglottic airway: unique SGA size: 4 Airway seal pressure: 20 cm H2O Number of attempts: 1 Additional comments: Smooth atraumatic placement. Salma Villasenor Jr., MD ANESTHESIA ORDER TABATHA Final Result * POCT hCG, urine (04/29/2024 7:02 AM BLOOD TYPER) HCG, ur, POC Negative Negative Lot Number [id number] QC Backgroud Clear Acceptable QC Control Line Acceptable Urine 04/29/2024 7:02 AM BLOOD TYPER Alfonso Do MD POINT OF CARE TEST ORDERABLE S Final Result from Last 3 Months Insurance [facility] Care Teams Pediatric Associate Relationship Specialty Start Date End Date Rene Santoyo MD PCP - General 11/24/12 Donna Porter PA [address] [place] [address] [address] [facility] [place] [place] [address] Physician Mine Technician Orthopedic Surgery 04/29/24
--- OUTSIDE RECORDS SUMMARY | 2024-07-20 15:29 | XMS_ITS | CONTINUITY OF CARE DOCUMENT ---
Author Name lizette bauer Address Unknown Organization [facility] Address [id number] [place] [address] [address] [place] [address] Phone [phone] Care Team Providers Care Director Of Graduate Medical Education Name Role Phone LEOPOLDO COY, MASSIEL F Unavailable [phone] LEOPOLDO COY, MASSIEL F Unavailable [phone] INSURANCE PROVIDERS Payer name Policy type / Coverage type [place] red democrat ID [facility] [id number] Other [id number]
--- OUTSIDE RECORDS SUMMARY | 2024-07-20 15:29 | XMS_ITS | Patient Health Summary ---
Author Organization [facility], [facility] Address [address] [place] [address] Care Team Providers Care Medical Territory Manager Name Role Phone Rene Santoyo MD Primary Care Provider [phone] Note from [facility],non-owned Affiliates and Associated Physician Practices is amultiple site organization consisting of ambulatory clinics and hospital sitesin [place], [place], [place] and [place]. This disclosure is being madepursuant to the Care Everywhere program and may not contain all information available regarding this patient. Last updated 18.[facility] Allergies * Albumin(Diarrhea) * Shellfish(Swelling) Medications * Be aware that medications may not be up to date on this document. Alwaysverify current medications with the patient. * levothyroxine (SYNTHROID) 150 MCG tablet Take 112 mcg by mouth daily before breakfast * liothyronine (CYTOMEL) 50 MCG tablet Take 5 mcg by mouth once daily * sumatriptan (IMITREX) 50 MG tablet Take 50 mg by mouth once as needed for Migraine. * albuterol HFA (PROVENTIL;VENTOLIN;PROAIR) 108 (90 BASE) MCG/ACT inhaler Inhale 2 Puffs by mouth every 6 hours as needed * omeprazole (PRILOSEC) 20 MG capsule Take 20 mg by mouth daily before breakfast. * busPIRone (BUSPAR) 15 MG tablet(Started 02/02/2020) * dexmethylphenidate ER 24hr (FOCALIN XR) 20 MG capsule(Started 02/02/2020) TK 1 C PO D * vitamin D, ergocalciferol, (DRISDOL) 1.25 MG (31727 UT) capsule(Started 01/28/2020) Active Problems Problem Noted Date Diagnosed Date [...] Mass Index 36.61 09/15/2020 8:42 AM CDT Procedures * HCG URINE QUAL POCT NOTIFICATION(Performed 09/15/2020) Performed for Preop examination * COLONOSCOPY SCREEN(Performed 09/15/2020) * OK ED EGD FLEX TRANSORAL DX(Performed 09/15/2020) * EGD(Performed 09/15/2020) * HCG URINE QUALITATIVE - POCT (IP) INTERFACED(Performed 09/15/2020) * ENDOSCOPY, COLON, SCREENING(Performed 09/15/2020) * DERMATOPATHOLOGY(Performed 03/26/2017) * ESOPHAGOSCOPY/ESOPHAGOGASTRODUODENOSCOPY WITH DILATION(Performed 10/16/2015) * EGD(Performed 10/16/2015) * HCG URINE QUALITATIVE - POINT OF CARE(Performed 10/16/2015) * PATHOLOGY TISSUE EXAM (STL)(Performed 08/21/2015) Performed for Dysphagia, unspecified type * EGD(Performed 08/21/2015) * ENDOSCOPY, COLON, SCREENING(Performed 08/21/2015) * COLONOSCOPY SCREEN(Performed 08/21/2015) * ESOPHAGOGASTRODUODENOSCOPY (EGD) DIAGNOSTIC(Performed 08/21/2015) * HCG URINE QUALITATIVE - POINT OF CARE(Performed 08/21/2015) * GROSS + MICRO EXAM(Performed 04/13/2010) * HCG URINE QUALITATIVE - POINT OF CARE(Performed 12/01/2009) Results * HCG URINE QUAL POCT NOTIFICATION (09/15/2020 10:00 AM CDT) Comment Notification Label Only - See Separate Report 09/15/2020 10:00 AM CDT [facility] Urine URINE / Unknown 8:34 AM CDT Ivan Quick MD LAB - URINALYSIS OR DERABLES [facility] [address] [place] [address] * EGD (09/15/2020 8:38 AM CDT) Report Endoscopy POC _ Patient Name: Julia Stevenson Procedure Date: 09/15/2020 8:38 AM Date of : 1970 Admit Type: Outpatient Age: 49 Gender: Female Attending MD: Ivan Quick MD _ Procedure: Upper GI endoscopy Indications: Dysphagia, Status post Yasmani-en-Y Providers: Ivan Quick MD (Doctor) Referring MD: [...] by the physician, the nurse and the body work auto trimmer in the procedure room. Mental Status Examination: [...] the patient was re-assessed after the procedure. - Prior Aspirin/ NSAID therapy: The patient has taken no previous aspirin or NSAID medications. After obtaining informed consent, the endoscope was passed under direct vision. Throughout the procedure, the patient's blood pressure, pulse, and oxygen saturations were monitored continuously. The Endoscope was introduced through the mouth, and advanced to the efferent jejunal loop. The upper GI endoscopy was accomplished without difficulty. The patient tolerated the procedure well. Findings: The examined esophagus was normal. One benign-appearing, intrinsic moderate (circumferential scarring or stenosis; an endoscope may pass) stenosis was found 40 cm from the incisors at the level of the GE junction. This stenosis measured less than one cm (in length). The stenosis was traversed. A TTS dilator was passed through the scope. Dilation with an 18-19-20 mm balloon dilator was performed to 20 mm. Evidence of a Yasmani-en-Y gastrojejunostomy was found. The gastrojejunal anastomosis was characterized by healthy appearing mucosa. The examined jejunum was normal. _ Impression: - Normal esophagus. - Benign-appearing esophageal stenosis at the GE junction. Dilated. - Yasmani-en-Y gastrojejunostomy with gastrojejunal anastomosis characterized by healthy appearing mucosa. - Normal examined jejunum. - No specimens collected. Recommendation: - Perform a colonoscopy today. - Resume previous diet. - Continue present medications. - Patient has a contact number available for emergencies. The signs and symptoms of potential delayed complications were discussed with the patient. Return to normal activities tomorrow. Written discharge instructions were provided to the patient. Procedure Code(s): --- Professional --- 51170, Esophagogastroduoden oscopy, flexible, transoral; with transendoscopic balloon dilation of esophagus (less than 30 mm diameter) --- Technical --- 13836, Esophagogastroduoden oscopy, flexible, transoral; with transendoscopic balloon dilation of esophagus (less than 30 mm diameter) Diagnosis Code(s): --- Professional --- K22.2, Esophageal obstruction Z98.0, Intestinal bypass and anastomosis status R13.10, Dysphagia, unspecified --- Technical --- K22.2, Esophageal obstruction Z98.0, Intestinal bypass and anastomosis status R13.10, Dysphagia, unspecified CPT copyright 2019 [employer]. All rights reserved. The codes documented in this report are preliminary and upon clinical pharmacist review may be revised to meet current compliance requirements. Dr. Ivan Quick MD ___ Ivan Quick MD 09/15/2020 9:42:31 AM This report has been signed electronically. Number of Addenda: 0 Note Initiated On: 09/15/2020 8:38 AM [facility] 09/15/2020 8:38 AM CDT Ivan Quick MD GI PROCEDURE ORDERA BLES Performing Organization Address [facility] Co de Phone Number [facility] [place] [address] * HCG URINE QUALITATIVE - POCT (IP) INTERFACED (09/15/2020 8:38 AM CDT) HCG Qual Urine Negative Negative 09/15/2020 8:44 AM CDT [facility] Urine URINE / Unknown 09/15/2020 8 :38 AM CDT 09/15/2020 8:44 AM CDT Ivan Quick MD LAB - POINT OF CARE ORDERABLES Performing Organization Address [facility] Co de Phone Number [facility] [address] [place] [phone] * ENDOSCOPY, COLON, SCREENING (09/15/2020 8:37 AM CDT) Report Endoscopy POC _ Patient Name: Julia Walkerlm Procedure Date: 09/15/2020 8:37 AM Date of [...] by the physician, the nurse and the body work auto trimmer in the procedure room. Mental Status Examination: [...] the patient. Procedure Code(s): --- Professional --- 47733, Colonoscopy, flexible; diagnostic, including collection of specimen(s) by brushing or washing, when performed (separate procedure) --- Technical --- 15333, Colonoscopy, flexible; diagnostic, including collection of specimen(s) [...] or abscess without bleeding CPT copyright 2019 [employer]. All rights reserved. The codes documented in this report are preliminary and upon clinical pharmacist review may be revised to meet current compliance requirements. Dr. Ivan Quick MD Ivan Quick MD 09/15/2020 10:10:25 AM This report has been signed electronically. Number of Addenda: 0 Note Initiated On: 09/15/2020 8:37 AM [facility] 09/15/2020 8:37 AM CDT Ivan Quick MD GI PROCEDURE ORDERA BLES Performing Organization Address [facility] Co de Phone Number [facility] [place] [address] * PATHOLOGY TISSUE FOR DERMATOLOGY (03/26/2017 12:00 AM AUTOMATION ENGINEERING TECHNICIAN) Result CASE: [id number] PATIENT: JULIA STEVENSON PATHOLOGIC DIAGNOSIS: Right lower leg: INTERSTITIAL GRANULOMATOUS DERMATITIS, 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 Check margins. GROSS DESCRIPTION: Received is one formalin filled container labeled with the patients name and designated right lower leg. The specimen consists of a punch biopsy measuring [id number]. The margin is inked green. The specimen is bisected and submitted in 1 cassette. Jar 0. MICROSCOPIC DESCRIPTION: There are lymphocytes around blood vessels and scattered histiocytes dissecting between collagen bundles. Eosinophils are not prominent. Deeper dermis is not present for evaluation. CD68 highlights the histiocytes. Colloidal iron stain fails to demonstrate definitive dermal mucin. Additional deeper sections were obtained and reviewed. This lesion is present at the margin of the specimen. COMMENT: The histologic differential diagnosis includes granuloma annulare and superficial portions of necrobiosis lipoidica. Clinical correlation is recommended. Electronically signed out by Michelle Huntley M.D., PhD. 03/31/2017 4:09:09PM [facility] Comment: Performed at: Dermatopathology Laboratory [facility] - Department of Dermatology [address] [place] [address], 5th [place] [address] Phone number: [phone] FAX: [phone] 03/26/2017 03/28/2017 Rene Santoyo MD LAB - PATHOLOGY/CYTO LOGY ORDERABLES Performing Organization Address [facility] Co de Phone Number [facility] [address] Lab [address] [place] [address], [facility] [phone] * EGD (10/16/2015 7:05 AM CDT) Report Endoscopy POC _ Patient Name: Julia Stevenson Procedure Date: 10/16/2015 7:05 AM Date of : 1970 Admit Type: Outpatient Age: 44 Gender: Female Attending MD: Ivan Quick MD _ Procedure: Upper GI endoscopy Indications: Dysphagia, Status post Yasmani-en-Y Providers: Ivan Quick MD (Doctor) Referring MD: Rene Santoyo MD (Referring MD) Medicines: Monitored Anesthesia Care Complications: No immediate complications. Estimated blood loss: Minimal. _ Procedure: Pre-Anesthesia Assessment: - Prior to [...] by the physician, the nurse and the body work auto trimmer in the procedure room. Mental Status Examination: [...] patient was re-assessed after the procedure. After obtaining informed consent, the endoscope was passed under direct vision. Throughout the procedure, the patient's blood pressure, pulse, and oxygen saturations were monitored continuously. The Endoscope was introduced through the mouth, and advanced to the efferent jejunal loop. The upper GI endoscopy was accomplished without difficulty. The patient tolerated the procedure well. Findings: One moderate benign-appearing, intrinsic stenosis was found 18 cm from the incisors. This measured 1 cm (in length) and was traversed. The scope was withdrawn. Dilation was performed with a Jamison dilator with mild resistance at 42 Fr. The scope was withdrawn. Dilation was performed with a Jamison dilator with mild resistance at 44 Fr. The dilation site was examined and showed moderate improvement in luminal narrowing. Estimated blood loss was minimal. Evidence of a Yasmani-en-Y gastrojejunostomy was found. The gastrojejunal anastomosis was characterized by healthy appearing mucosa. The examined jejunum was normal. _ Impression: - Benign-appearing esophageal stenosis. Dilated. - Yasmani-en-Y gastrojejunostomy with gastrojejunal anastomosis characterized by healthy appearing mucosa. - Normal examined jejunum. - No specimens collected. Recommendation: - Soft diet. - Repeat the upper endoscopy PRN for retreatment. Procedure Code(s): --- Professional --- 37522, Esophagogastroduoden oscopy, flexible, transoral; diagnostic, including collection of specimen(s) by brushing or washing, when performed (separate procedure) 82826, Dilation of esophagus, by unguided sound or bougie, single or multiple passes --- Technical --- 18548, Esophagogastroduoden oscopy, flexible, transoral; diagnostic, including collection of specimen(s) by brushing or washing, when performed (separate procedure) 35630, Dilation of esophagus, by unguided sound or bougie, single or multiple passes Diagnosis Code(s): --- Professional --- K22.2, Esophageal obstruction Z98.0, Intestinal bypass and anastomosis status R13.10, Dysphagia, unspecified --- Technical --- K22.2, Esophageal obstruction Z98.0, Intestinal bypass and anastomosis status R13.10, Dysphagia, unspecified CPT copyright 2015 [employer]. All rights reserved. The codes documented in this report are preliminary and upon clinical pharmacist review may be revised to meet current compliance requirements. Dr. Ivan Quick MD ___ Ivan Quick MD 10/16/2015 7:46:50 AM This report has been signed electronically. Number of Addenda: 0 Note Initiated On: 10/16/2015 7:05 AM [facility] 10/16/2015 7:05 AM CDT Ivan Quick MD GI PROCEDURE ORDERA MALINIS [facility] [place] [address] * HCG URINE QUALITATIVE - POINT OF CARE (IP) (10/16/2015 7:05 AM CDT) Only the most recent of3 resultswithin the time period is included. HCG Qual Urine Negative Negative [facility] POCT TESTING QC Verified Yes Yes [facility] POC T TESTING Urine specimen (specimen) URINE / Unknown 10/16/2015 7:05 AM CDT Ivan Quick MD LAB - POINT OF CARE ORDERABLES [facility] POCT TESTING [address] [phone] * GROSS + MICRO EXAM (STL) (08/21/2015 7:51 AM CDT) Case Report Surgical Pathology Report Case: [id number] Authorizing Provider: Ivan Quick MD Collected: 08/21/2015 07:51 AM Ordering Location: [facility] Received: 08/21/2015 09:59 AM Pathologist: Alberto Alexander MD Specimen: Esophageal Biopsy, esophageal Bx 08/22/2015 2:19 PM CDT [facility] Final Diagnosis 1. Esophageal biopsies: -- Chronic esophagitis, nonspecific, mild to moderate. -- Negative for dysplasia. -- Fungal stain negative for microorganisms. AB/arm 08/22/2015 2:19 PM CDT [facility] Gross Description Received in formalin in a container labeled Julia Stevenson., esophageal biopsy. The container holds 3 santos tissue fragments measuring 0.1 cm up to 0.4 cm. The specimen is entirely submitted in cassette labeled A1. DYT/alj 08/22/2015 2:19 PM CDT [facility] Microscopic Description The esophageal biopsy consists of fragments of squamous mucosa. There is mild focally moderate chronic inflammation, but intraepithelial eosinophils are not found, so the inflammation is relatively nonspecific. There is no columnar mucosa seen. The PAS stain is negative for fungal organisms. There are no viral cytopathic changes. There is no dysplasia. AB/arm 08/22/2015 2:19 PM CDT [facility] Pathology/Cytolo gy ESOPHAGEAL BIOPSY SPECIMEN / Unknown 08/21/2015 7:51 AM CDT 08/21/2015 9:59 AM CDT Ivan Quick MD LAB - PATHOLOGY/CYT OLOGY ORDERABLES [facility] [address] [facility] [place] [address] * EGD (08/21/2015 7:41 AM CDT) Report Endoscopy POC _ Patient Name: Julia Stevenson Procedure Date: 08/21/2015 7:41 AM Date of : 1970 Admit Type: Outpatient Age: 44 Gender: Female Attending MD: Ivan Quick MD _ Procedure: Upper GI endoscopy Indications: Dysphagia, Status post Yasmani-en-Y Providers: Ivan Quick MD (Doctor) Referring MD: Rene Santoyo MD (Referring MD) Medicines: Monitored Anesthesia Care Complications: No immediate complications. Estimated blood loss: None. _ Procedure: Pre-Anesthesia Assessment: - Prior to [...] by the physician, the nurse and the body work auto trimmer in the procedure room. Mental Status Examination: [...] patient was re-assessed after the procedure. After obtaining informed consent, the endoscope was passed under direct vision. Throughout the procedure, the patient's blood pressure, pulse, and oxygen saturations were monitored continuously. The Endoscope was introduced through the mouth, and advanced to the efferent jejunal loop. The upper GI endoscopy was accomplished without difficulty. The patient tolerated the procedure well. Findings: One moderate benign-appearing, intrinsic stenosis was found 18 cm from the incisors. This measured 9 mm (inner diameter) x 1 cm (in length) and was traversed. The scope was withdrawn. Dilation was performed with a Jamison dilator with mild resistance at 40 Fr and 42 Fr. The dilation site was examined and showed moderate improvement in luminal narrowing. Estimated blood loss was minimal. The middle third of the esophagus, lower third of the esophagus and gastroesophageal junction were normal. Biopsies were taken in the mid esophagus 8cm above the GE junction with a cold forceps for histology. Evidence of a Yasmani-en-Y gastrojejunostomy was found. The gastrojejunal anastomosis was characterized by healthy appearing mucosa. The gastric pouch measures 3cm. The examined efferent jejunum was normal. _ Impression: - Benign-appearing esophageal stenosis. Dilated. - Normal middle third of esophagus, lower third of esophagus and gastroesophageal junction. Biopsied. - Yasmani-en-Y gastrojejunostomy with gastrojejunal anastomosis characterized by healthy appearing mucosa. - Normal examined jejunum. Recommendation: - Mechanical soft diet. - Perform a colonoscopy today. - Await pathology results. Procedure Code(s): --- Professional --- 88397, Esophagogastroduoden oscopy, flexible, transoral; with biopsy, single or multiple 72359, Dilation of esophagus, by unguided sound or bougie, single or multiple passes --- Technical --- 64440, Esophagogastroduoden oscopy, flexible, transoral; with biopsy, single or multiple 45726, Dilation of esophagus, by unguided sound or bougie, single or multiple passes Diagnosis Code(s): --- Professional --- K22.2, Esophageal obstruction Z98.0, Intestinal bypass and anastomosis status R13.10, Dysphagia, unspecified --- Technical --- K22.2, Esophageal obstruction Z98.0, Intestinal bypass and anastomosis status R13.10, Dysphagia, unspecified CPT copyright 2015 [employer]. All rights reserved. The codes documented in this report are preliminary and upon clinical pharmacist review may be revised to meet current compliance requirements. Dr. Ivan Quick MD ___ Ivan Quick MD 08/21/2015 7:55:33 AM This report has been signed electronically. Number of Addenda: 0 Note Initiated On: 08/21/2015 7:41 AM [facility] 08/21/2015 7:41 AM CDT Ivan Quick MD GI PROCEDURE ORDERA BLES [facility] [place] [address] * ENDOSCOPY, COLON, SCREENING (08/21/2015 7:39 AM CDT) Report Endoscopy POC _ Patient Name: Julia Stevenson Procedure Date: 08/21/2015 7:39 AM Date of : 1970 Admit Type: Outpatient Age: 44 Gender: Female Attending MD: Ivan Quick MD _ Procedure: Colonoscopy Indications: Screening for colorectal malignant neoplasm, High risk colon cancer surveillance: Personal history of colonic polyps, Last colonoscopy: 2009 Providers: Ivan Quick MD (Doctor) Referring MD: Rene Santoyo MD (Referring MD) Medicines: Monitored Anesthesia Care Complications: No immediate complications. Estimated blood loss: None. _ Procedure: Pre-Anesthesia Assessment: - Prior to [...] by the physician, the nurse and the body work auto trimmer in the procedure room. Mental Status Examination: [...] quality of the bowel preparation was excellent. Findings: The digital rectal exam was normal. Pertinent negatives include no palpable rectal lesions. Multiple small and large-mouthed diverticula were found in the sigmoid colon and in the descending colon. The rectum, transverse colon, ascending [...] primary care physician as previously scheduled. - High fiber diet indefinitely. Procedure Code(s): --- Professional --- 67613, Colonoscopy, flexible; diagnostic, including collection of specimen(s) by brushing or washing, when performed (separate procedure) --- Technical --- 98209, Colonoscopy, flexible; diagnostic, including collection of specimen(s) [...] perforation or abscess without bleeding CPT copyright 2015 [employer]. All rights reserved. The codes documented in this report are preliminary and upon clinical pharmacist review may be revised to meet current compliance requirements. Dr. Ivan Quick MD Ivan Quick MD 08/21/2015 8:14:54 AM This report has been signed electronically. Number of Addenda: 0 Note Initiated On: 08/21/2015 7:39 AM [facility] 08/21/2015 7:39 AM CDT Ivan Quick MD GI PROCEDURE ORDERA BANNERS [facility] [place] [address] * GROSS + MICRO EXAM (04/13/2010 12:00 AM AUTOMATION ENGINEERING TECHNICIAN) [facility] Surgeon DR. Radha QUICK [facility] Grossed By EDOUARD ROMEO [facility] Gross Report [facility] Comment: COPY TO: Dr. Bryon Santoyo INDICATION FOR PROCEDURE: Colon cancer screening in patient at increased risk, FH of colon polyps, chronic diarrhea OPERATION: Colonoscopy GROSS: The specimen is received in two containers labeled with the patient's name. 1. The first container is labeled sigmoid colon polyp. It consists of a 2 mm fragment of santos tissue. Stained and submitted entirely in A. 2. The second container is labeled random colon. It consists of multiple 1 mm fragments of santos tissue. Stained and submitted entirely in B. LW/km Microscopic Examination [facility] Comment: MICROSCOPIC: 1. Sections labeled sigmoid colon polyp show a fragment of colonic mucosa displaying characteristics of tubular adenoma. No invasive malignancy is seen. 2. Sections labeled random colon biopsy shows fragments of unremarkable colonic mucosa, free of cryptitis, crypt abscesses, granulomas, or malignancy. JW/susanna Diagnosis [facility] Comment: DIAGNOSIS: 1. Sigmoid colon polyp: -- Tubular adenoma. 2. Colon, random biopsies: -- No pathologic diagnosis. JW/susanna Released by TONY PICKENS M.D . [facility] CPT Code 12158m9 [facility] POLYP OF COLON / Unknown 04/13/2010 04/13/2010 12:11 PM AUTOMATION ENGINEERING TECHNICIAN Ivan Quick MD LAB - PATHOLOGY/CYT OLOGY ORDERABLES Performing Organization Address City/State/[facility] Co de Phone Number [facility] [address] [place] [address] Care Teams Medical Territory Manager Relationship Specialty Start Date End Date Rene Santoyo MD [address] [place] [address] PCP - General Family Medicine 08/21/15
--- OUTSIDE RECORDS SUMMARY | 2024-07-20 15:29 | XMS_ITS | Clinical Summary ---
Author Organization [facility] Address [address] [place] [address] Care Team Providers Care Honing Machine Set Up Operator Name Role Phone Rene Santoyo MD Primary Care Provider [phone] Source Comments [facility] Affiliates and Associated Physician Practices is amultiple site organization consisting of ambulatory clinics and hospital sitesin [place], [place], [place] and [place]. This disclosure is being madepursuant to the Care Everywhere program and may not contain all information available regarding this patient. Last updated 18.[facility] Allergies Active Allergy Reactions Criticality Noted Date [...] Active vitamin D, ergocalciferol, (DRISDOL) 1.25 MG (67135 UT) capsule 01/28/2020 Active Active Problems Problem Noted Date Diagnosed Date Dysphagia 02/17/2020 Hx of adenomatous colonic polyps 02/17/2020 Family History Medical History Relation Name Comments Hypercholesterolemia Father Hypertension Mother Thyroid Disease Mother Relation Name Status Comments Father Mother Social History Tobacco Use Types Packs/Day Years [...] Mass Index 36.61 09/15/2020 8:42 AM CDT Plan of Treatment Health Maintenance Due Date Last Done Comments COLOGUARD (AGES 45-75) - COLON CA SCREENING 1972 CT COLONOGRAPHY - COLON CA SCREENING 1972 FIT - COLON CA SCREENING 1972 FLEX SIG - COLON CA SCREENING 1972 LIPID TESTING 1970 MAMMOGRAM 1972 PAP SMEAR 1972 HIV SCREENING 11/03/1987 HEPATITIS C SCREENING 10/29/1990 DTAP/TDAP/TD VACCINES (1 - Tdap) 11/03/1991 HEPATITIS B VACCINE (1 of 3 - 19+ 3-dose series) 11/03/1991 PNEUMOCOCCAL VACCINE 50+ (1 of 1 - PCV) 2022 ZOSTER VACCINE (1 of 2) 2022 COVID-19 VACCINE (1 - 2023- season) 2024 INFLUENZA VACCINE (#1) 2024 DEPRESSION SCREENING 05/12/2024 COLON MONITORING 09/15/2030 09/15/2020, 11/2020, 08/21/2015, Additional history exists COLONOSCOPY - COLON CA SCREENING 09/15/2030 09/15/2020, 09/15/2020, 08/21/2015, Additional history exists Colorectal Cancer Screening 09/15/2030 HIB VACCINE Aged Out No longer eligi ble based on patient's age to complete this topic HPV VACCINE Aged Out No longer eligi ble based on patient's age to complete this topic MENINGOCOCCAL (Group B) VACCINE Aged Out No longer eligible based on patient's age to complete this topic MENINGOCOCCAL VACCINE Aged Out No sol diane eligible based on patient's age to complete this topic PNEUMOCOCCAL VACCINE Aged Out No long er eligible based on patient's age to complete this topic Procedures Procedure Name Priority Date/Time Associated Diagnosis Comments ENDOSCOPY, COLON, SCREENING Routine 09/15/2020 8:37 AM CDT from Last 3 Months or Most Recently Relevant to Health Maintenance Results * ENDOSCOPY, COLON, SCREENING (09/15/2020 8:37 AM CDT) Report Endoscopy POC _ Patient Name: Julia Stevenson Procedure Date: 09/15/2020 8:37 AM Date of : 1970 Admit Type: Outpatient Age: 49 Gender: Female Attending MD: Ivan Quick MD _ Procedure: Colonoscopy Indications: Screening for colorectal malignant neoplasm, High risk colon cancer surveillance: Personal history of colonic polyps, Last colonoscopy 5 years ago Providers: Ivan Quick MD (Doctor) Referring MD: Rene Sanotyo MD (Referring MD) Medicines: Monitored Anesthesia Care [...] by the physician, the nurse and the spool carrier in the procedure room. Mental Status Examination: [...] the patient. Procedure Code(s): --- Professional --- 58054, Colonoscopy, flexible; diagnostic, including collection of specimen(s) by brushing or washing, when performed (separate procedure) --- Technical --- 43759, Colonoscopy, flexible; diagnostic, including collection of specimen(s) [...] or abscess without bleeding CPT copyright 2019 [employer]. All rights reserved. The codes documented in this report are preliminary and upon pool table operator review may be revised to meet current compliance requirements. Dr. Ivan Quick MD Ivan Quick MD 09/15/2020 10:10:25 AM This report has been signed electronically. Number of Addenda: 0 Note Initiated On: 09/15/2020 8:37 AM [facility] ENDOSCOPY 09/15/2020 8:37 AM CDT Ivan Quick MD GI PROCEDURE [place] [address] from Last 3 Months or Most Recently Relevant to Health Maintenance Care Teams Honing Machine Set Up Operator Relationship Specialty Start Date End Date Rene Santoyo MD [address] [place] [phone] PCP - General Family Medicine 08/21/15
--- OUTSIDE RECORDS SUMMARY | 2024-07-20 15:29 | XMS_ITS | Clinical Summary ---
Author Organization [facility] Address [address] [place] [address] Care Team Providers Care Head Golf Professional Name Role Phone Rene Santoyo MD Primary Care Provider [phone] Donna Porter Unavailable [phone] Allergies Active Allergy Reactions Criticality Noted Date Comments Egg Other (See comments) Low Pimples and diarrhea Shellfish Swelling Medium 04/13/2010 Medications ergocalciferol (VITAMIN D) 50,000 unit capsule Take 1 capsule (50,000 Units total) by mouth once a week 03/13/20 21 Active Synthroid 112 mcg tablet Take 1 tablet (112 mcg total) by mouth early morning babysitter before breakfast 03/01/20 21 Active liothyronine (CYTOMEL) [...] Thyroid activity decreased 12/30/2008 Bronchial asthma 12/30/2008 Encounters Date Type Department Care Team Description 06/15/2024 1:45 PM WELDING MACHINE OPERATOR [employer] Ancillary Procedure [facility] at [address] [phone] 06/15/2024 1:30 PM WELDING MACHINE OPERATOR [employer] Office Visit [facility] [address] [place] [phone] Donna Porter PA Acute pain of left knee (Primary Dx); Other bilateral secondary osteoarthritis of knee; S/P lateral meniscectomy of right knee; Acute medial meniscus tear of left knee, initial encounter; Chronic pain of right knee 05/20/2024 2:00 PM WELDING MACHINE OPERATOR [employer] Office Visit [facility] [address] [place] [phone] Donna Porter PA Primary osteoarthritis of right knee (Primary Dx); S/P arthroscopic partial medial meniscectomy of right knee; S/P arthroscopic partial lateral meniscectomy of right knee 04/29/2024 7:46 AM WELDING MACHINE OPERATOR [employer] Anesthesia Event [facility] Operating Room [address] [place] [address] Salma Villasenor Jr., MD McDowell, Juri Osmell, MD 04/29/2024 7:45 AM WELDING MACHINE OPERATOR [employer] - 04/29/2024 8:45 AM WELDING MACHINE OPERATOR [employer] Surgery [facility] [address] [place] [address] Alfonso Do MD Right knee arthroscopy, medial and lateral meniscectomy including any meniscal shavings, medial and lateral chondroplasty 04/29/2024 6:36 AM WELDING MACHINE OPERATOR [employer] - 04/29/2024 11:03 AM WELDING MACHINE OPERATOR [employer] Hospital Encounter [facility] [address] [place] [address] Alfonso Do MD Complex tear of lateral meniscus of right knee as current injury, initial encounter (Primary Dx); Acute medial meniscus tear of right knee, initial encounter; Complex tear of lateral meniscus of right knee as current injury, initial encounter; Acute medial meniscus tear of right knee, initial encounter Discharge Disposition: Discharge to home or self care from Last 3 Months Surgical History Surgery Date Site/Laterality Comments SECTION HERNIA REPAIR CHOLECYSTECTOMY BARIATRIC SURGERY Gastric Bypass Medical History Medical History Date Comments Disorder of thyroid Thyroid dise ase Hx Other Medical gastric bypass Hx Other Medical hypoglycemia Asthma ADHD (attention deficit hyperactivity disorder) Anemia GERD (gastroesophageal reflux disease) Sleep apnea PONV (postoperative nausea and vomiting) Hypothyroidism Depression Anxiety Hypertension Family History Medical History Relation Name Comments Hypothyroidism Other Family histor y of Hypothyroidism; Relation Name Status Comments Other Social History Tobacco Use Types Packs/Day Years [...] on file Legal Sex Female 8:16 AM WELDING MACHINE OPERATOR [employer] Gender Identity Not on file Sexual Orientation Not on file Obstetrics History Last Filed Vital Signs Vital Sign Reading Time Taken Comments Blood Pressure 125/70 06/15/2024 1:32 PM WELDING MACHINE OPERATOR [employer] Pulse 72 06/15/2024 1:32 PM WELDING MACHINE OPERATOR [employer] Temperature 36.4 C (97.6 F) 04/29/2024 9:40 AM WELDING MACHINE OPERATOR [employer] Respiratory Rate 18 06/15/2024 1:32 PM WELDING MACHINE OPERATOR [employer] Oxygen Saturation 96% 04/29/2024 10:10 AM WELDING MACHINE OPERATOR [employer] Inhaled Oxygen Concentration - - Weight 116.1 kg (256 lb) 06/15/2024 1:32 PM WELDING MACHINE OPERATOR [employer] Height 165.1 cm (5' 5 ) 06/15/2024 1:32 PM WELDING MACHINE OPERATOR [employer] Body Mass Index 42.6 06/15/2024 1:32 PM WELDING MACHINE OPERATOR [employer] Plan of Treatment Health Maintenance Due Date Last Done Comments Breast Cancer Screening-Mammogram 1972 Cervical Cancer Screening 1972 Colon Cancer Screening-Colonoscopy 1972 Depression Screening 1972 Hepatitis C Screening 1972 DTaP/Tdap/Td Vaccine (1 - Tdap) 11/03/1983 Hepatitis B Screening 1990 Regular Well Visit/Exam 18-64 1990 Pneumococcal vaccine <65 (1 of 2 - PCV) 11/03/1991 Zoster Vaccine (1 of 2) 2022 Covid-19 Vaccine ( - season) 2024 04/02/2021, 06/30/2020, 06/01/2020 Influenza Vaccine (#1) 2024 Procedures Procedure Name Priority Date/Time Associated Diagnosis Comments XR KNEE LEFT 1 OR 2 VIEWS Schedule Routine, Read Routine (OP Routine) 06/15/2024 1:55 PM WELDING MACHINE OPERATOR [employer] Acute pain of left knee AK ARTHROCENTESIS ASPIR&/INJ MAJOR JT/BURSA W/O US Routine 06/15/2024 1:30 PM WELDING MACHINE OPERATOR [employer] Acute pain of left knee Other bilateral secondary osteoarthritis of knee Chronic pain of right knee AK AN ELECTIVE SUPRAGLOTTIC AIRWAY Routine 04/29/2024 7:57 AM WELDING MACHINE OPERATOR [employer] ARTHROSCOPY KNEE 04/29/2024 7:45 AM WELDING MACHINE OPERATOR [employer] Complex tear of lateral meniscus of right knee, unspecified whether old or current tear, initial encounter POCT HCG, URINE Routine 04/29/2024 7:02 AM WELDING MACHINE OPERATOR [employer] from Last 3 Months Results * XR Knee Left 1 or 2 Views (06/15/2024 1:55 PM WELDING MACHINE OPERATOR [employer]) Anatomical Region Laterality Modality Lower Extremities, Knee Left Digital Radiography Narrative 07/11/2024 10:45 AM WELDING MACHINE OPERATOR [employer] Lateral view of the left knee is reviewed, interpreted, and compared with previous imaging obtained in November of 2023. No acute fractures or destructive osseous lesions are seen. Mild joint effusion. Moderate tibial femoral joint space narrowing present. us Donna NUNN IMG XR PROCEDURES Final Result * AK ARTHROCENTESIS ASPIR&/INJ MAJOR JT/BURSA W/O US (06/15/2024 1:30 PM WELDING MACHINE OPERATOR [employer]) Narrative Donna Porter PA - 06/15/2024 1:30 PM WELDING MACHINE OPERATOR [employer] Donna Porter PA 07/11/2024 10:51 AM Large Joint (Hip, Knee, Shoulder) Injection: bilateral knee Performed by: Donan Porter PA Authorized by: Donna Porter PA [...] the procedure well with no immediate complications Donna NUNN IN CLINIC/BEDSIDE ORDER TABATHA Final Result * AK AN ELECTIVE SUPRAGLOTTIC AIRWAY (04/29/2024 7:57 AM WELDING MACHINE OPERATOR [employer]) Narrative Deep Darnell CRNA - 04/29/2024 7:57 AM WELDING MACHINE OPERATOR [employer] Deep Darnell CRNA 04/29/2024 7:57 AM Airway Patient location: OR Urgency: elective Indications for airway management: anesthesia Difficult airway: no Staff: Placed by: CHRISTIAN SCIENCE PRACTITIONER: Deep Darnell CRNA Emergent airway documentation: Risks [...] * POCT hCG, urine (04/29/2024 7:02 AM WELDING MACHINE OPERATOR [employer]) HCG, ur, POC Negative Negative Lot Number [id number] QC Backgroud Clear Acceptable QC Control Line Acceptable Urine 04/29/2024 7:02 AM WELDING MACHINE OPERATOR [employer] Alfonso Do MD POINT OF CARE TEST ORDERABLE S Final Result from Last 3 [place] [id number] [facility] CHOICE PLUS [facility] CHOICE PLUS Member Subscriber Plan / Payer (Ef fective 2020-Present) Name:Julia Stevenson Relation to Subscriber:Spouse Name:COLLIN STEVENSON Date of :1971 (Home) Address: [place] [address] Payer ID:[id number] (NAIC) Type:[facility] HMO/PPO Address: [place] [id number] Care Teams Head Golf Professional Relationship Specialty Start Date End Date Rene Santoyo MD PCP - General 11/24/12 Donna Porter PA [address] [place] [address] [address] [place] [address] Physician Geomatics Professor Orthopedic Surgery 04/29/24
== END 2024-07-20 13:47 | disposition home or self-care (01) ==
LOC: CHSIMG 13:47
PROVIDERS: PCP Family Medicine; Visit Provider Obstetrics & Gynecology Gynecology
DX: Z12.31 Encounter for screening mammogram for malignant neoplasm of breast (principal); Z78.0 Asymptomatic menopausal state
CPT/HCPCS: 77063; 77067; 77080